=== PATIENT | female | born 1985 | race Caucasian/White ===

== ENCOUNTER → 2018-01-27 | Outpatient (CLI) | payer OTHER | LOC: M LRY 14:01 | DX: Z36.2 Encounter for other antenatal screening follow-up (principal); Z3A.36 36 weeks gestation of pregnancy | CPT/HCPCS: 76816 ==

== ENCOUNTER → 2018-01-29 | Outpatient (REF) | payer OTHER | LOC: M LAB REF 17:39 | DX: Z34.83 Encounter for supervision of other normal pregnancy, third trimester (principal) ==

== ENCOUNTER 2018-02-09 04:50 | Inpatient (IN) | payer OTHER ==
[2018-02-09] MEDS: LACTATED RINGER'S 1000 ML IV (06:28)
[2018-02-09] MEDS ORDERED: LR 1,000 ML IV (06:28)
[2018-02-09 07:03] LABS: HEMATOCRIT 32.6 % (36.0-47.0); HEMOGLOBIN 10.7 g/dl (12.0-15.5); MEAN CORPUSCULAR HEMOGLOBIN 26.8 pg (27.0-33.0); MEAN CORPUSCULAR HGB CONC 32.8 g/dl (32.0-36.5); MEAN CORPUSCULAR VOLUME 81.5 fl (80.0-96.0); PLATELET COUNT, AUTOMATED 224 10^3/uL (150-450); RED CELL DISTRIBUTION WIDTH 14.1 % (11.5-14.5)
[2018-02-09] MEDS ORDERED: MORPHINE PRES-FREE INJ 10 MG/10 ML VIAL (J2274) As Ordered (07:32)
[2018-02-09 07:33] LABS: AMPHETAMINES URINE REFLEX NEGATIVE (NEGATIVE); BARBITURATES URINE REFLEX NEGATIVE (NEGATIVE); BENZODIAZEPINES URINE REFLEX NEGATIVE (NEGATIVE); CANNABINOIDS URINE REFLEX NEGATIVE (NEGATIVE); COCAINE METABOLITE URINE REFLE NEGATIVE (NEGATIVE); METHADONE URINE REFLEX NEGATIVE (NEGATIVE); OPIATES URINE REFLEX NEGATIVE (NEGATIVE); PHENCYCLIDINE URINE REFLEX NEGATIVE (NEGATIVE)
[2018-02-09] MEDS ORDERED: OXYTOCIN INJ 10 UNITS/ML VIAL (J2590) As Ordered ×3 (07:33→09:04)
[2018-02-09] MEDS ORDERED: dexameTHASONE 4 MG/ML 1ML VIAL (J1100) As Ordered (07:33)
[2018-02-09] MEDS ORDERED: ONDANSETRON 4MG/2ML VIAL (J2405) As Ordered (07:33)
[2018-02-09] MEDS: BICITRA 30ML SOLN UDC PO (07:35)
[2018-02-09] MEDS ORDERED: NALOXONE INJ 0.4 MG/1 ML VIAL (J2310) IV ×2 (07:52)
[2018-02-09] MEDS ORDERED: METOCLOPRAMIDE INJ 10MG/2ML VIAL (J2765) IV (07:52)
[2018-02-09] MEDS ORDERED: ONDANSETRON 4MG/2ML VIAL (J2405) IV ×3 (07:52→10:00)
[2018-02-09] MEDS ORDERED: fentaNYL 100 MCG/2 ML INJECTION (J3010) As Ordered (08:21)
[2018-02-09] MEDS ORDERED: PROPOFOL 200 MG/20 ML VIAL As Ordered (08:44)
[2018-02-09] MEDS: OXYTOCIN DRIP 30 UNITS in APPROPRIATE DILUENT 1 EA IV (09:30)
[2018-02-09] MEDS ORDERED: oxyCODONE 5MG TAB PO (09:30)
[2018-02-09] MEDS ORDERED: MEASLES,MUMPS,RUBELLA VACCINE INJ (MMR-II) (90707) SC (09:30)
[2018-02-09] MEDS ORDERED: DOCUSATE SODIUM 100 MG CAP PO (09:30)
[2018-02-09] MEDS ORDERED: RHOGAM 300 MCG (1500 IU) INJ (J2790) IM (09:30)
[2018-02-09] MEDS ORDERED: PERCOCET 5MG/325MG TAB PO ×2 (10:00)
[2018-02-09] MEDS ORDERED: fentaNYL 100 MCG/2 ML INJECTION (J3010) IV (10:00)
[2018-02-09] MEDS: LR 1,000 ML IV ×3 (10:00→20:04)
[2018-02-09] MEDS: diphenhydrAMINE INJ 50MG/ML VIAL (J1200) IV (11:39)
[2018-02-09] MEDS: PRENATAL VITAMINS CHEWABLE TABLET PO (12:00)
[2018-02-09] MEDS: KETOROLAC 30 MG/ML VIAL (J1885) IV ×2 (16:13→20:56)
[2018-02-09] MEDS: NALBUPHINE HCL 10 MG/ML AMP (J2300) IV (19:34)
[2018-02-10] MEDS: KETOROLAC 30 MG/ML VIAL (J1885) IV ×2 (02:56→09:48)
[2018-02-10] MEDS: PRENATAL VITAMINS CHEWABLE TABLET PO (07:28)
[2018-02-10] MEDS: PERCOCET 5MG/325MG TAB PO ×2 (07:29→14:55)
[2018-02-10 07:40] LABS: HEMATOCRIT 26.1 % (36.0-47.0); MEAN CORPUSCULAR HEMOGLOBIN 26.7 pg (27.0-33.0); MEAN CORPUSCULAR HGB CONC 32.2 g/dl (32.0-36.5); MEAN CORPUSCULAR VOLUME 82.9 fl (80.0-96.0); PLATELET COUNT, AUTOMATED 173 10^3/uL (150-450); RED BLOOD COUNT 3.15 10^6/uL (4.00-5.40); RED CELL DISTRIBUTION WIDTH 14.4 % (11.5-14.5); WHITE BLOOD COUNT 9.1 10^3/uL (4.0-10.0)
[2018-02-10 07:42] LABS: HEMOGLOBIN 8.4 g/dl (12.0-15.5)
[2018-02-10] MEDS: IBUPROFEN 800 MG TAB PO (17:17)
[2018-02-11] MEDS: IBUPROFEN 800 MG TAB PO ×2 (00:45→08:23)
[2018-02-11] MEDS: PERCOCET 5MG/325MG TAB PO (06:20)
[2018-02-11] MEDS: PRENATAL VITAMINS CHEWABLE TABLET PO (08:23)
== END 2018-02-11 16:35 | disposition home or self-care (01) | DRG 540 ==
LOC: M LDO 04:50 → M LDI 06:08 → M OBS 10:35
PROVIDERS: Obstetrics & Gynecology
PROC: 10D00Z1 Extraction of Products of Conception, Low, Open Approach (ICD-10-PCS; principal; 2018-02-09 07:42)
DX: O32.1XX0 Maternal care for breech presentation, not applicable or unspecified (principal); E66.9 Obesity, unspecified; O42.02 Full-term premature rupture of membranes, onset of labor within 24 hours of rupture; O99.214 Obesity complicating childbirth; Z37.0 Single live birth; Z3A.37 37 weeks gestation of pregnancy; Z88.5 Allergy status to narcotic agent; O34.211 Maternal care for low transverse scar from previous cesarean delivery